=== PATIENT | female | born 1995 | race Caucasian/White ===

== ENCOUNTER 2017-11-04 09:19 | Emergency (ER) | payer OTHER ==
[~2017-11-04] VITALS: Ht 165.1 cm; Wt 141.6 kg
[2017-11-04 10:58] LABS: CHLORIDE 107 mEq/L (99-109); POTASSIUM 4.5 mEq/L (3.7-5.4); SODIUM 139 mEq/L (136-147)
[2017-11-04 11:00] LABS: GLUCOSE 96 mg/dL (70-99); HEMATOCRIT 40.6 % (36.0-46.0); HEMOGLOBIN 13.8 G/DL (11.9-15.5); MCH 30.8 PG (29.0-34.0); MCV 90.6 FL (83-99); PLATELET COUNT 283 K/uL (156-360); RBC DIS.WIDTH-SD 42.9 % (39-53); RED BLOOD COUNT 4.48 M/uL (3.80-5.20); WHITE BLOOD COUNT 7.8 K/uL (4.1-10.2)
[2017-11-04 11:04] LABS: CREATININE 0.8 mg/dL (0.6-1.3); GFR ESTIMATE (CALCULATED) > 59 mL/min/
[2017-11-04 11:05] LABS: UREA NITROGEN (BUN) 23 mg/dL (9-23)
[2017-11-04 11:12] LABS: QUANTITATIVE HCG < 4.0 MIU/ML
[2017-11-04 11:25] LABS: APPEARANCE CLEAR ((CLEAR)); BILIRUBIN NEGATIVE; BLOOD NEGATIVE; COLOR YELLOW ((YELLOW)); GLUCOSE (STRIP) NEGATIVE; KETONES NEGATIVE; LEUKOCYTES TRACE; NITRITE NEGATIVE; PROTEIN (STRIP) NEGATIVE; SPECIFIC GRAVITY 1.025 (1.000-1.030); UROBILINOGEN 0.2 MG/DL (0.2-1.0)
[2017-11-04 11:29] LABS: BACTERIA NONE SEEN /HPF; EPITHELIAL CELLS RARE /HPF; MUCUS TRACE /LPF; RED BLOOD CELLS 0-5 /HPF (0-5); UCUL ADDED? NO; WHITE BLOOD CELLS 0-5 /HPF (0-5)
[2017-11-04 11:37] LABS: MONOSPOT (MONONUCLEOSIS SEROL) NEGATIVE
[2017-11-04 12:58] VITALS: BP 131/78
== END 2017-11-04 13:00 | disposition home or self-care (01) ==
LOC: EME 09:19
PROVIDERS: Nurse Practitioner Family
DX: R21 Rash and other nonspecific skin eruption (principal); R53.81 Other malaise; T42.6X5A Adverse effect of other antiepileptic and sedative-hypnotic drugs, initial encounter; F31.9 Bipolar disorder, unspecified; E28.2 Polycystic ovarian syndrome
CPT/HCPCS: 80048; 81003; 84702; 85027; 86308; 99281; 99284; J1885; J2405; J7120

== ENCOUNTER 2017-11-17 19:41 | Emergency (ER) | payer OTHER ==
[~2017-11-17] VITALS: Ht 165.1 cm; Wt 137.1 kg
[2017-11-17 20:46] LABS: HEMATOCRIT 43.5 % (36.0-46.0); HEMOGLOBIN 15.3 G/DL (11.9-15.5); MCH 31.4 PG (29.0-34.0); MCHC 35.2 G/DL (30.0-36.0); MCV 89.3 FL (83-99); PLATELET COUNT 327 K/uL (156-360); RBC DIS.WIDTH-CV 12.6 % (11.8-14.6); RBC DIS.WIDTH-SD 41.6 % (39-53); RED BLOOD COUNT 4.87 M/uL (3.80-5.20)
[2017-11-17 20:59] LABS: CHLORIDE 104 mEq/L (99-109); SODIUM 139 mEq/L (136-147)
[2017-11-17 21:01] LABS: GLUCOSE 87 mg/dL (70-99)
[2017-11-17 21:05] LABS: CREATININE 0.8 mg/dL (0.6-1.3); GFR ESTIMATE (CALCULATED) > 59 mL/min/
[2017-11-17 21:06] LABS: UREA NITROGEN (BUN) 11 mg/dL (9-23)
[2017-11-17 21:29] LABS: ALBUMIN 4.6 g/dL (3.2-4.8)
[2017-11-17 21:30] LABS: D-DIMER ELISA < 150.00 ng/mLDDU (<230)
[2017-11-17 21:32] LABS: TOTAL PROTEIN 7.7 g/dL (6.4-8.3)
[2017-11-17 21:33] LABS: TOTAL BILIRUBIN 0.9 mg/dL (0.0-1.0)
[2017-11-17 21:34] LABS: ALKALINE PHOSPHATASE 76 IU/L (3-129)
[2017-11-17 21:37] LABS: AST (GOT) 23 IU/L (2-34); DIRECT BILIRUBIN 0.3 mg/dL (0.0-0.3)
[2017-11-17 21:38] LABS: ALT (GPT) 23 IU/L (3-49)
[2017-11-17 21:43] LABS: TROP-I INTERPRETATION NEGATIVE; TROPONIN-I < 0.01 ng/mL (0.0-0.30)
[2017-11-17 21:44] LABS: QUANTITATIVE HCG < 4.0 MIU/ML
[2017-11-17] MEDS ORDERED: VENTOLIN HFA18 GM IH (23:14)
[2017-11-17] MEDS ORDERED: TESSALON200 MG PO (23:14)
[2017-11-17] MEDS ORDERED: ZITHROMAX Z-PA250 MG PO (23:14)
[2017-11-17 23:48] VITALS: BP 152/81
== END 2017-11-17 23:50 | disposition home or self-care (01) ==
LOC: EME 19:41
PROVIDERS: Physician Assistant
DX: J20.9 Acute bronchitis, unspecified (principal); R42 Dizziness and giddiness; M32.9 Systemic lupus erythematosus, unspecified; R00.0 Tachycardia, unspecified; R94.31 Abnormal electrocardiogram [ECG] [EKG]; F31.9 Bipolar disorder, unspecified
CPT/HCPCS: 71046; 80048; 80076; 84484; 84702; 85027; 85379; 93005; 94640; 99281; 99284; J7030